=== PATIENT | female | born 1990 | race American Indian/Alaskan Native ===

== ENCOUNTER 2017-10-06 07:37 | Emergency (ER) | payer MEDICAID ==
[2017-10-06 07:43] VITALS: BP 140/82
[2017-10-06] MEDS ORDERED: POLYSPORIN OU ONE (08:11)
[2017-10-06] MEDS ORDERED: BSS 1 DROPS, TETRACAINE 0.5% 1 DROPS, FUL-GLO 1 MG OS ONE (08:11)
--- NOTE | 2017-10-06 08:12 | Emergency Department Report ---
Eye Injury/Foreign Body - HPI Duration: 1 Day Eye Location: Left Severity: Mild Tetanus Status: Up to Date Eye Symptoms: Eye Pain: No, Blurred Vision: No, Eye Redness: Yes, Grinding/ Hammering Metal: No, Used Eye Protection: No, Contact Lens Use: No, Recalls Injury: No, Photophobia: No Other History: PT SPLASHED LAUNDRY DETERGENT IN L EYE LAST NIGHT. SHE DID FLUSH BUT RED THIS AM. ASKING FOR WORK NOTE FOR TOMORROW. <PB WATERS - Last Filed: 10/06/17 09:26> ED Review of Systems ROS: Stated complaint: LEFT EYE PAIN Other details as noted in HPI Comment: All other systems reviewed and negative Eyes: other (LEFT EYE PAIN) <PB WATERS - Last Filed: 10/06/17 09:26> ROS: Stated complaint: LEFT EYE PAIN Other details as noted in HPI <MASON CHRISTIAN - Last Filed: 10/06/17 14:24> ED Past Medical Hx - Past Medical History Previous Medical History?: No - Surgical History Past Surgical History?: No - Social History Smoking Status: Never Smoker Substance Use Type: None <PB WATERS - Last Filed: 10/06/17 09:26> <GINOMASON - Last Filed: 10/06/17 14:24> - Medications Home Medications: Home Medications Medication Instructions Recorded Confirmed Last Taken Type Polymyxin B Sulf/Trimethoprim 10 ml OP Q6HR #1 drops 10/06/17 Unknown Rx [Polytrim Eye Drops] Eye Injury Exam - Exam General: Vital signs noted. No distress. Alert and acting appropriately. - Visual Acuity Bilateral Vision Acuity Degree: NON CONTACT LENS Eye Exam: Left Injection (MILD L CONJUNCTIVAL REDNESS), Neither Abnormal Pupil, Neither EOMI, Neither Mucous Discharge, Neither Purulent Discharge, Neither Corneal Edema, Neither Photophobia <PB WATERS - Last Filed: 10/06/17 09:26> - Exam General: Vital signs noted. No distress. Alert and acting appropriately. <MASON CHRISTIAN - Last Filed: 10/06/17 14:24> ED Course Vital Signs 10/06/17 07:39 Temperature 98 F Pulse Rate 86 Respiratory 18 Rate Blood Pressure 140/82 O2 Sat by Pulse 100 Oximetry - Reevaluation(s) Reevaluation #1: 10/06/17 08:49 [place] LENS FLUSH TO L EYE <MARCO ANTONIOLAURENMEENUPB [place] Last Filed: 10/06/17 09:26> Vital Signs 10/06/17 07:39 Temperature 98 F Pulse Rate 86 Respiratory 18 Rate Blood Pressure 140/82 O2 Sat by Pulse 100 Oximetry <MASON CHRISTIAN Filed: 10/06/17 14:24> ED Medical Decision Making - Medical Decision Making [facility] - Differential Diagnosis CHEMICAL CONJ <MARCO ANTONIOLAURENMEENUPB A Last Filed: 10/06/17 09:26> Critical care attestation.: If time is entered above; I have spent that time in minutes in the direct care of this critically ill patient, excluding procedure time. <MARCO ANTONIOLAURENMEENUPB A Last Filed: 10/06/17 09:26> Critical care attestation.: If time is entered above; I have spent that time in minutes in the direct care of this critically ill patient, excluding procedure time. <MASON CHRISTIAN Filed: 10/06/17 14:24> ED Disposition Is pt being admited?: No Does the pt Need Aspirin: No Time of Disposition: 08:50 <MARCO ANTONIOLAURENMEENUPB A Last Filed: 10/06/17 09:26> <MASON CHRISTIAN Last Filed: 10/06/17 14:24> Clinical Impression: Chemical conjunctivitis Disposition: DC-01 TO HOME OR SELFCARE Condition: Stable Instructions: Chemical Eye [place] (ED), Conjunctivitis (ED) Additional Instructions: WARM COMPRESSES TO EYE MED ORDERED TODAY MOTRIN OR TYLENOL FOR PAIN FOLLOW UP OPTHA INSTRUCTED Prescriptions: Polymyxin B Sulf/Trimethoprim [Polytrim Eye Drops] 10 ml OP Q6HR #1 drops Referrals: NGHIA MITCHELL III, MD [Referring] - 3-5 Days
[2017-10-06] MEDS ORDERED: TETRACAINE 0.5% OS ONE (08:23)
[2017-10-06] MEDS ORDERED: NACL 0.9% 1000 ML 1,000 ML IR ONE (08:41)
[2017-10-06] MEDS ORDERED: NACL 0.9% 500 ML 500 ML IV ONE (08:56)
[2017-10-06] MEDS ORDERED: NACL 0.9% 1000 ML 1,000 ML ONE (08:59)
== END 2017-10-06 09:51 | disposition home or self-care (01) ==
LOC: ED 07:37
DX: H10.212 Acute toxic conjunctivitis, left eye (principal)
CPT/HCPCS: 99283; J7030